=== PATIENT | male | born 1955 | race Caucasian/White ===

== ENCOUNTER 2017-11-28 10:51 | Inpatient (IN) ==
[2017-11-28] MEDS ORDERED: Ondansetron 4 MG/2 ML VIAL IVP ONE (11:29)
[2017-11-28] MEDS ORDERED: *HR* FentaNYL (PF) 100 MCG/2 ML VIAL IVP ONE ×2 (11:31→12:42)
[2017-11-28 11:48] LABS: Bilirubin,Urine Small (Negative); Blood,Urine Negative (Negative); Clarity,Urine Clear (Clear); Color,Urine Yellow (Yellow); Glucose,Urine (UA) Normal (Normal); Ketones,Urine 40 mg/dL (Negative); Leukocyte Esterase,Urine Negative (Negative); Nitrite,Urine Negative (Negative); Protein,Urine 30 mg/dL (Neg-Trace); Specific Gravity,Urine > 1.030 (1.010-1.025); Urobilinogen,Urine Normal (Normal)
[2017-11-28 11:49] LABS: Hematocrit 46.5 % (37.5-50.1); Hemoglobin 15.6 g/dL (12.9-16.9); Mean Corpuscular HGB Conc 33.5 g/dL (31.6-35.5); Mean Corpuscular Hemoglobin 31.7 pg (28.0-33.3); Mean Corpuscular Volume 94.5 fL (83.0-100.0); Mean Platelet Volume 9.2 fL (9.4-12.4); Platelet Count 318 K/mcL (140-400); Red Blood Count 4.92 M/mcL (4.19-5.50); Red Cell Distribution Width 12.9 % (11.5-14.5)
[2017-11-28 11:51] LABS: Bacteria,Urine None Seen per hpf (None-Few); Hyaline Casts,Urine None Seen per lpf (None-Few); Squamous Epithelial Cell,Urine Few per lpf (None-Few); WBC,Urine 0-3 per hpf (0-3)
--- NOTE | 2017-11-28 12:04 | Emergency Department Note ---
Disposition Clinical Impression: Alcohol use Pancreatitis Qualifiers: Chronicity: acute Pancreatitis type: alcohol induced Acute pancreatitis complication: no infection or necrosis Qualified Code(s): K85.20 - Alcohol induced acute pancreatitis without necrosis or infection Disposition: Admitted As Inpatient Condition: Fair Referrals: Nguyen Odom MD [Primary Care Provider] - Forms: ED Satisfaction Letter, Work/School Release General Adult HPI - General Chief complaint: ED Abdominal Pain Stated complaint: ABD Pain N/V Time Seen by Provider: 11/28/17 11:01 Source: patient Limitations: no limitations Nursing Notes Reviewed: Yes Vital Signs Reviewed: Yes - History of Present Illness HPI Narrative: Presents with abdominal pain which is central but does extend to the entire abdomen and sharp and severe without radiation and woke him from sleep at 2 or 3 :00 this morning and has been constant since that time. No history of abdominal surgeries that he has had diverticulitis in the past. He denies any diarrhea, blood in the urine or stool, testicular pain or penile discharge, dysuria or urinary frequency. He has not used any medication for the pain. Social history: Smoker, does not drink every day but can drink 6 or 8 beers at a time, no drug use Pain Scale: 10 - Related Data Home Medications Medication Instructions Recorded Confirmed Aspirin [Lo-Dose Aspirin EC] 81 mg PO DAILY 11/28/17 11/28/17 Atorvastatin [Lipitor] 40 mg PO HS 11/28/17 11/28/17 Gabapentin [Neurontin] 1,200 mg PO 0900,2100 11/28/17 11/28/17 Gabapentin [Neurontin] 600 mg PO 1200 11/28/17 11/28/17 Multivitamin [One Daily 1 tab PO DAILY 11/28/17 11/28/17 Multivitamin] Omeprazole [PriLOSEC] 20 mg PO DAILY 11/28/17 11/28/17 OxyCODONE/APAP 5/325 [Percocet 1 tab PO 5XD PRN 11/28/17 11/28/17 5/325 MG] Polyethylene Glycol 3350 [MiraLAX] 17 gm PO DAILY 11/28/17 11/28/17 Propranolol LA (24 HR) [Inderal LA] 60 mg PO DAILY 11/28/17 11/28/17 Tizanidine HCl [Zanaflex] 4 mg PO TID 11/28/17 11/28/17 Venlafaxine XR (24 HR) [Effexor XR] 37.5 mg PO Q48H 11/28/17 11/28/17 Allergies Allergy/AdvReac Type Severity Reaction Status Date / Time No Known Allergies Allergy Verified 11/28/17 13:39 Review of Systems: Constitutional: No fever Vision: No blurred vision ENT: No rhinorrhea Respiratory: No cough Allergic: No allergies : No blood in urine GI: No blood in stool Hematologic: No bruising Dermatologic: No skin rash Musculoskeletal: No pain in the extremities Neuro: No numbness of the extremities Past Medical History - Past Medical History Medical history: Reports: hyperlipidemia Psychiatric history: Reports: depression - Social History Smoking Status: Current every day smoker Smokeless Tobacco Status: No Alcohol use: Reports: occasionally Drug use: Reports: none Physical Exam CONSTITUTIONAL: Alert and oriented X3, well-nourished, well appearing, in no apparent distress HEAD: Normocephalic; atraumatic. EYES: PERRL, no scleral icterus. NOSE: The nose is normal in appearance without rhinorrhea RESP: Normal chest excursion with respiration; breath sounds clear and equal bilaterally; no wheezes, rhonchi, or rales CARD: Regular rhythm, without murmurs, rub or gallop ABD: Non-distended; normal appearance, moderate generalized pain but moderate to severe pain located in the central aspect of the abdomen, the entire abdomen is soft,without rigidity, rebound or guarding SKIN: Normal for age and race; warm and dry; no apparent lesions - General Limitations: no limitations General appearance: alert, in no apparent distress Course Vital Signs Temperature 97.4 F L 11/28/17 10:56 Pulse Rate 77 11/28/17 10:56 Respiratory Rate 16 11/28/17 10:56 Blood Pressure 152/97 11/28/17 10:56 O2 Sat by Pulse Oximetry 96 11/28/17 10:56 Temperature 98.4 F 11/28/17 11:47 Pulse Rate 73 11/28/17 12:36 Respiratory Rate 20 11/28/17 12:36 Blood Pressure 163/98 11/28/17 12:36 O2 Sat by Pulse Oximetry 96 11/28/17 12:36 Oxygen Delivery Oxygen Delivery Room Air Medical Decision Making - MDM Narrative Medical decision making narrative: I am concerned about this patient's pain and a CT scan is ordered. I did review the CBC result which does show some minimal leukocytosis with a white blood cell count of 14,000, the patient does have significant alcohol use of pancreatitis is another possibility. Patient did receive IV fluids, IV fentanyl and Zofran and will be watched closely here. 1204 I did review the patient's test results and the patient does have significantly elevated lipase and the patient does have a diagnosis of acute pancreatitis. I did review the EKG showing normal sinus rhythm with a rate of 71 without acute ischemic change. The patient will be admitted to the hospital. LFTs and bilirubin were all normal and does not evidence of acute cholecystitis on the CT scan and the likely etiology of the pancreatitis is alcohol however this can be further assessed and evaluated as an inpatient 1413 I did speak with the hospitalist to accept the patient for admission and we did review the patient's test results including labs and CT scan and past history and the patient is accepted for admission 1424 - Medical Records Medical records reviewed: Yes I reviewed the patient's medical records. - Lab Data Lab results reviewed: Yes I reviewed the patient's lab results. Result diagrams: 11/28/17 11:28 11/28/17 11:28 Lab Results 11/28/17 11/28/17 11/28/17 Range/Units 11:28 11:28 11:28 WBC 14.4 H (4.3-11.1) K/mcL RBC 4.92 (4.19-5.50) M/mcL Hgb 15.6 (12.9-16.9) g/dL Hct 46.5 (37.5-50.1) % MCV 94.5 (83.0-100.0) fL MCH 31.7 (28.0-33.3) pg MCHC 33.5 (31.6-35.5) g/dL RDW 12.9 (11.5-14.5) % Plt Count 318 (140-400) K/mcL MPV 9.2 L (9.4-12.4) fL Sodium 138 (136-145) mEq/L Potassium 4.3 (3.5-5.1) mEq/L Chloride 103 (98-107) mEq/L Carbon Dioxide 26 (23-29) mEq/L BUN 10 (8-23) mg/dL Creatinine 0.69 L (0.70-1.30) mg/dL Est GFR ( Amer) > 60 (> 60) Est GFR (Non-Af Amer) > 60 (> 60) BUN/Creatinine Ratio 14 (6-26) Glucose 139 H (70-105) mg/dL Calculated Osmolality 287 (280-300) Calcium 9.6 (8.6-10.3) mg/dL Total Bilirubin 0.7 (0.3-1.0) mg/dL Direct Bilirubin 0.2 (0.0-0.2) mg/dL Indirect Bilirubin 0.5 (0.0-1.2) mg/dL AST 25 (13-39) Units/L ALT 28 (7-52) Units/L Alkaline Phosphatase 98 (34-104) Units/L Serum Total Protein 7.6 (6.4-8.9) g/dL Albumin 4.6 (3.5-5.7) g/dL Globulin 3.0 (2.4-3.5) g/dL Albumin/Globulin Ratio 1.5 (1.1-2.2) Lipase > 1800 H (11-82) Units/L Urine Color Yellow (Yellow) Urine Clarity Clear (Clear) Urine pH 6.0 (5.0-8.0) pH Units Ur Specific [place] > 1.030 H (1.010-1.025) Urine Protein 30 H (Neg-Trace) mg/dL Urine Glucose (UA) Normal (Normal) mg/dL Urine Ketones 40 H (Negative) mg/dL Urine Blood Negative (Negative) Urine Nitrite Negative (Negative) Urine Bilirubin Small H (Negative) Urine Urobilinogen Normal (Normal) mg/dL Ur Leukocyte Esterase Negative (Negative) Urine Microscopic RBC 5-15 H (0-3) per hpf Urine Microscopic WBC 0-3 (0-3) per hpf Ur Squamous Epith Cells Few (None-Few) per lpf Urine Bacteria None Seen (None-Few) per hpf Hyaline Casts None Seen (None-Few) per lpf Ur Culture Indicated? NO (NO)
[2017-11-28] MEDS ORDERED: 0.9 % Sodium Chloride 1,000 ML IVC ONE (12:09)
[2017-11-28 12:26] LABS: Alanine Aminotransferase 28 Units/L (7-52); Albumin 4.6 g/dL (3.5-5.7); Albumin/Globulin Ratio 1.5 (1.1-2.2); Alkaline Phosphatase 98 Units/L (34-104); Aspartate Amino Transferase 25 Units/L (13-39); BUN/Creatinine Ratio 14 (6-26); Bilirubin,Direct 0.2 mg/dL (0.0-0.2); Bilirubin,Indirect 0.5 mg/dL (0.0-1.2); Bilirubin,Total 0.7 mg/dL (0.3-1.0); Blood Urea Nitrogen 10 mg/dL (8-23); Calcium 9.6 mg/dL (8.6-10.3); Carbon Dioxide 26 mEq/L (23-29); Chloride 103 mEq/L (98-107); Glucose 139 mg/dL (70-105); Lipase > 1800 Units/L (11-82); Osmolality,Calculated 287 (280-300); Potassium 4.3 mEq/L (3.5-5.1); Sodium 138 mEq/L (136-145); Total Protein 7.6 g/dL (6.4-8.9); eGFR For Non-African Americans > 60 (> 60)
[2017-11-28] MEDS ORDERED: *HR* LORazepam 2 MG/ML VIAL IVP ONE (14:48)
[2017-11-28] MEDS ORDERED: *HR* Promethazine 25 MG/ML VIAL IVP PRN (15:08)
[2017-11-28] MEDS ORDERED: Ondansetron 4 MG/2 ML VIAL IVP PRN (15:08)
[2017-11-28] MEDS ORDERED: Naloxone 0.4 MG/ML INJ IVP PRN (15:09)
[2017-11-28] MEDS ORDERED: Acetaminophen IV 1,000 MG/100 ML INFUS..BTL IVPB ONE (15:12)
[2017-11-28] MEDS ORDERED: Venlafaxine XR (24 HR) 37.5 MG CAP.ER.24H PO SCH (15:15)
[2017-11-28] MEDS ORDERED: 0.9 % Sodium Chloride 1,000 ML IVC SCH (15:15)
[2017-11-28] MEDS ORDERED: *HR* LORazepam 2 MG/ML VIAL IVP PRN (15:16)
--- NOTE | 2017-11-28 15:25 | Internal Med History&Physical ---
<Jose LuisAngel - Last Filed: 11/28/17 16:16> Date of Encounter: 11/28/17 Time of Encounter: 14:30 Internal Medicine - H&P: HPI Chief complaint: Abdominal pain Admitted From: Emergency Dept Plans for Post Hospital Care: Home History of present illness: Mr. Ware is a 62 year old male w/PMH of HLD, chronic back pain, chronic leg spasms, GERD, and depression presents from the ED w/CC of abdominal pain that began at 2 a.m. this morning and woke the pt. from sleep. Reports nausea and vomiting every hour with increased temperature, diaphoresis, and epigastric pain. Last meal was last night and consisted of broccoli/cheddar soup. Pt. reports drinking 8 beers last night as well. States he drinks 1-2 beers every other night usually. No alleviating factors. Describes the pain as sharp, epigastric pain that spans his abdomen. Denies previous occurrence or hx. Pt. denies recent illness, changes in vision, headache, unusual bleeding, chest pain , shortness of breath, diarrhea, constipation, cough, chest congestion, dizziness, lightheadedness, numbness, tingling, pre-syncope, or syncope. Past Med Surg Social Fam HX - Past Medical History Source: patient, old records reviewed, obtained from family Medical history: hyperlipidemia, other (Chronic back pain, chronic muscle spasms in bilateral LEs) Additional medical history: Gallstones, diverticulitis Psychiatric history: depression - Past Surgical History Additional surgical history: Brain biopsy - Social History Smoking Status: Current every day smoker Smokeless Tobacco Status: No Alcohol use: heavy, recent (8 beers last night) Drug use: none Current living situation: Home, With Family Activity Level: Independent ambulation Recent Out of Country Travel Within the Last 8 Weeks: No Exposure or Possible Exposure to Illness During Travel: No - Family History Father Race: Family Member Ethnicity: Non- Living Status: Age at : 49 Cause of : Cerebral hemorrhage Hx Family Cardiac Disorders: Yes (Hemorrhage) Mother Race: Family Member Ethnicity: Non- Living Status: Age at : 89 Cause of : Alzheimer's disease Hx Family Cardiac Disorders: Yes (CAD) Hx Family Neurologic Disorders: Yes (Alzheimer's disease) Brother Race: Family Member Ethnicity: Non- Living Status: Age at : 43 Cause of : Cancer Hx Family Cardiac Disorders: Yes (CAD) Hx Family Cancer: Yes (Prostate) Sister Race: Family Member Ethnicity: Non- Living Status: Still Living Hx Family Cardiac Disorders: Yes (CAD) Hx Family Cancer: Yes (Breast) Internal Medicine - H&P: Meds Aspirin [Lo-Dose Aspirin EC] 81 mg PO DAILY 11/28/17 [History] Atorvastatin [Lipitor] 40 mg PO HS 11/28/17 [History] Gabapentin [Neurontin] 1,200 mg PO 0900,2100 11/28/17 [History] Gabapentin [Neurontin] 600 mg PO 1200 11/28/17 [History] Multivitamin [One Daily Multivitamin] 1 tab PO DAILY 11/28/17 [History] Omeprazole [PriLOSEC] 20 mg PO DAILY 11/28/17 [History] OxyCODONE/APAP 5/325 [Percocet 5/325 MG] 1 tab PO 5XD PRN 11/28/17 [History] Polyethylene Glycol 3350 [MiraLAX] 17 gm PO DAILY 11/28/17 [History] Propranolol LA (24 HR) [Inderal LA] 60 mg PO DAILY 11/28/17 [History] Tizanidine HCl [Zanaflex] 4 mg PO TID 11/28/17 [History] Venlafaxine XR (24 HR) [Effexor XR] 37.5 mg PO Q48H 11/28/17 [History] 3 Allergy/AdvReac Type Severity Reaction Status Date / Time No Known Allergies Allergy Verified 11/28/17 13:39 All Systems PM: A 10-system review of systems was performed and is negative for pertinent findings except as documented above in the HPI. - Constitutional Constitutional: as per HPI, chills, excessive sweating, fever(s), no night sweats - EENT Eyes: no change in vision, no discharge, no pain, no photophobia Ears: no ear discharge, no ear pain, no tinnitus Nose, mouth and throat: no dysphagia, no nasal discharge, no neck pain, no sore throat - Breasts Breasts: as per HPI - Cardiovascular Cardiovascular ROS IM: no chest pain, no diaphoresis, no dyspnea, no lightheadedness, no palpitations, no syncope - Respiratory Respiratory: no cough, no dyspnea, no wheezing, no excessive phlegm production - Gastrointestinal Gastrointestinal: as per HPI, abdominal pain, heartburn, nausea, vomiting, no diarrhea, no hematemesis, no hematochezia, no melena - Genitourinary Genitourinary ROS male: as per HPI - Musculoskeletal Musculoskeletal ROS IM: as per HPI, back pain, muscle cramps (Bilateral LEs), no numbness, no tingling - Integumentary Integumentary IM: no rash, no unusual bruising - Neurological Neurological ROS: no confusion, no convulsions, no focal weakness, no numbness, no tingling, no tremor(s) - Psychiatric Psychiatric: as per HPI, depression - Endocrine Endocrine IM: as per HPI - Hematologic/Lymphatic Hematologic/Lymphatic: no easy bruising - Allergic/Immunologic Allergic/Immunologic: as per HPI - Constitutional Vitals: Temp Pulse Resp BP Pulse Ox 98.4 F 73 20 163/98 96 11/28/17 11:47 11/28/17 12:36 11/28/17 12:36 11/28/17 12:36 11/28/17 12:36 General appearance: Present: cooperative, A&O X 3, pleasant, severe distress ( Abdominal pain), answers questions appropriately Exam: Patient examined at bedside in the ED with chief complaint of severe abdominal pain that patient rated as 9/10. Patient also reports nausea and vomiting. Denies unusual bleeding or blood in stool. Patient also reports drinking 8 beers last night but denies heavy alcohol use. Patient denies any other complaints at this time. at bedside during exam. Plan of care discussed with and patient regarding acute pancreatitis, nothing by mouth status except for ice chips and medications, and aggressive IV fluids with and patient expressing understanding and agreement with POC. VS: 98.4F temp, HR 73, RR 20, BP 163/98, SPO2 96% on RA. - Head Head exam: Present: atraumatic, normocephalic - Eye Eye exam: Present: PERRL, conjuntiva pink, sclera anicteric Pupils: Present: PERRL - ENT ENT exam: Present: normal exam - Neck Neck exam general surgery: Present: normal inspection - Respiratory Respiratory exam: Present: CTAB. Absent: accessory muscle use, rales, rhonchi, wheezes - Cardiovascular Cardiovascular exam: Present: RRR, +S1, +S2. Absent: diastolic murmur, gallop, rubs, systolic murmur - GI/Abdominal GI/Abdominal exam: Present: guarding, normal bowel sounds, soft, tenderness, no peritoneal signs. Absent: distended - Rectal Rectal exam: Present: deferred - Additional comments: exam deferred. - Extremities Exam Extremities exam: Present: warm, radial pulses palpable and symmetrical. Absent : calf tenderness, cyanotic, pedal edema - Back Exam Back exam: Present: normal inspection - Neurological Exam Neurological exam: Present: alert, CN II-XII intact, oriented X3, no focal deficits. Absent: pronater drift, facial droop, speech deficit - Psychiatric Psychiatric exam: Present: anxious - Skin Skin exam: Present: dry, intact Internal Med - H&P Results - Labs CBC & Chem 7: 11/28/17 11:28 11/28/17 11:28 Labs: Short CBC 11/28/17 Range/Units 11:28 WBC 14.4 H (4.3-11.1) K/mcL Hgb 15.6 (12.9-16.9) g/dL Hct 46.5 (37.5-50.1) % Plt Count 318 (140-400) K/mcL BMP 11/28/17 11:28 Sodium 138 Potassium 4.3 Chloride 103 Carbon Dioxide 26 BUN 10 Creatinine 0.69 L Glucose 139 H Calcium 9.6 Liver Function 11/28/17 Range/Units 11:28 Total Bilirubin 0.7 (0.3-1.0) mg/dL Direct Bilirubin 0.2 (0.0-0.2) mg/dL AST 25 (13-39) Units/L ALT 28 (7-52) Units/L Alkaline Phosphatase 98 (34-104) Units/L Albumin 4.6 (3.5-5.7) g/dL Urine 11/28/17 Range/Units 11:28 Urine Color Yellow (Yellow) Urine Clarity Clear (Clear) Urine pH 6.0 (5.0-8.0) pH Units Ur Specific Garibaldi > 1.030 H (1.010-1.025) Urine Protein 30 H (Neg-Trace) mg/dL Urine Glucose (UA) Normal (Normal) mg/dL - EKG Data EKG shows normal: sinus rhythm - EKG Data Prior EKG available for review: yes EKG comments: 11/28/17 15:35 EKG dated 02/07/15 shows normal sinus rhythm. EKG dated 11/28/17 shows sinus rhythm. - Impressions ITS Impressions Abdomen/Pelvis CT 11/28/17 11:30 IMPRESSION: 1. Acute pancreatitis suboptimally evaluated without IV contrast. IV contrast enhanced CT is important to evaluate for areas of necrosis and pancreatitis. 2. Peripancreatic fluid is presumably reactive. 3. Cholelithiasis. 4. Calcific atherosclerotic disease aorta. D/ / Dusty Arnett / [employer] Interpreting Provider: Dusty ToughSurgeryanita - Diagnostic Studies CT scan - abdomen Additional comments: Impressions Abdomen/Pelvis CT 11/28/17 11:30 IMPRESSION: 1. Acute pancreatitis suboptimally evaluated without IV contrast. IV contrast enhanced CT is important to evaluate for areas of necrosis and pancreatitis. 2. Peripancreatic fluid is presumably reactive. 3. Cholelithiasis. 4. Calcific atherosclerotic disease aorta. D/ / Dusty Melquiades / [employer] Interpreting Provider: Dusty ToughSurgeryanita Other Images Additional comments: Impressions EXAMINATION: TWO XRAY VIEWS OF THE ABDOMEN AND SINGLE XRAY VIEW OF THE CHEST 11/28/2017 10:13 am COMPARISON: None. HISTORY: ORDERING SYSTEM PROVIDED HISTORY: Severe abd LLQ painRM 2. FINDINGS: No lines or tubes. Normal cardiomediastinal silhouette. The lungs are clear without focal consolidation or pleural effusion. No suspicious pulmonary nodules. No pulmonary edema. No pneumothorax. No gaseous distended loops of small bowel or air-fluid levels. No free air or pneumatosis. Normal gas and stool burden is seen throughout the colon and rectum. No acute osseous abnormality. XR/XR acute abdominal series IMPRESSION: 1. No acute cardiopulmonary disease. 2. Unremarkable bowel gas pattern. D/ / 11/28/2017 10:28:25 Jenny Etienne MD / sandro Interpreting Provider: Jenny Etienne MD - Assessment and plan (1) Pancreatitis Current Visit: Yes Status: Acute Assessment and plan: Acute pancreatitis. Abdominal pain began this morning at 2 a.m. and woke the pt. from sleep. Reports nausea and vomiting every hour with increased temperature, diaphoresis, and epigastric pain. Last meal was last night and consisted of broccoli/cheddar soup. Pt. reports drinking 8 beers last night as well. States he drinks 1-2 beers every other night usually. No alleviating factors. Describes the pain as sharp, epigastric pain that spans his abdomen. Denies previous occurrence or hx. CT of the abdomen/pelvis today shows acute pancreatitis suboptimally evaluated without IV contrast. IV contrast-enhanced CT is important to evaluate for areas of necrosis and pancreatitis. Peripancreatic fluid is presumably reactive. Cholelithiasis. Calcific atherosclerotic disease aorta. Stair-step pain medications for pain mgmt. NPO except ice chips and medications. 0.9 NS IV fluids @ 125 mLs/HR. Pt. discussed w /Dr. Melo who agrees w/plan of care. Pt. is high risk for further morbidity and complications d/t current acute pancreatitis and severe abdominal pain, recent heavy alcohol use, current tobacco use, hx, and risk factors. Observation. Qualifiers: Chronicity: acute Pancreatitis type: alcohol induced Acute pancreatitis complication: unspecified Qualified Code(s): K85.20 - Alcohol induced acute pancreatitis without necrosis or infection (2) Abdominal pain Current Visit: Yes Status: Acute Assessment and plan: Acute abdominal pain that began this morning at 2 a.m. and woke the pt. from sleep. Reports nausea and vomiting every hour with increased temperature, diaphoresis, and epigastric pain. Last meal was last night and consisted of broccoli/cheddar soup. Pt. reports drinking 8 beers last night as well. States he drinks 1-2 beers every other night usually. No alleviating factors. Describes the pain as sharp, epigastric pain that spans his abdomen. Denies previous occurrence or hx. Stair-step pain medications for pain mgmt. NPO except ice chips and medications. Qualifiers: Abdominal location: epigastric Qualified Code(s): R10.13 - Epigastric pain (3) Alcohol use Current Visit: Yes Status: Acute Assessment and plan: Acute on chronic alcohol use. Pt. reports drinking 1-2 beers every other night but states that he drank 8 beers last night. Relates use to family stress. CIWA scale. Blood alcohol ordered. IVP 1 mg Ativan Q6HR PRN. Falls/safety precautions and up with assist only. (4) Nausea & vomiting Current Visit: Yes Status: Acute Assessment and plan: Acute nausea and vomiting r/t current acute pancreatitis. IVP Zofran 4 mg Q6HR and IVP 12.5 mg Phenergan Q4HR PRN for N/V. Continue pts. PO Prilosec. Qualifiers: Vomiting type: cyclical vomiting Vomiting Intractability: intractable Qualified Code(s): G43.A1 - Cyclical vomiting, intractable (5) Cholelithiasis Current Visit: Yes Status: Acute Assessment and plan: Acute cholelithiasis according to CT today which shows liver attenuation and texture appears unremarkable. No discrete hepatic lesion or intra-hepatic bile duct dilatation seen. Gallbladder has calcifications reflecting cholelithiasis without pericholecystic fluid or inflammatory change evident. Qualifiers: Cholelithiasis location: gallbladder Cholecystitis presence: without cholecystitis Biliary obstruction: without biliary obstruction Qualified Code(s): K80.20 - Calculus of gallbladder without cholecystitis without obstruction (6) HLD (hyperlipidemia) Current Visit: Yes Status: Chronic Assessment and plan: Hx of chronic HLD. Lipid panel in a.m. labs. Continue pts. Lipitor. Qualifiers: Hyperlipidemia type: pure hypercholesterolemia Qualified Code(s): E78.00 - Pure hypercholesterolemia, unspecified; E78.0 - Pure hypercholesterolemia (7) Muscle spasm of both lower legs Current Visit: Yes Status: Chronic Assessment and plan: Hx of chronic muscle spasms of bilateral LEs. Continue pts. Zanaflex. Falls/ safety precautions and up with assist only. (8) Chronic back pain Current Visit: Yes Status: Chronic Assessment and plan: Hx of chronic back pain d/t previous injury. Verified Neurontin via OARRS @ 1200 mg TID. Stair-step pain medications ordered for current adominal pain r/t pancreatitis. Qualifiers: Back pain location: low back pain Back pain laterality: midline Sciatica presence: unspecified whether sciatica present Qualified Code(s): M54.5 - Low back pain; G89.29 - Other chronic pain (9) GERD (gastroesophageal reflux disease) Current Visit: Yes Status: Chronic Assessment and plan: Hx of chronic GERD. Continue pts. PO Prilosec. Qualifiers: Esophagitis presence: esophagitis presence not specified Qualified Code(s) : K21.9 - Gastro-esophageal reflux disease without esophagitis (10) DVT prophylaxis Current Visit: Yes Status: Acute Assessment and plan: Heparin 5,000 units SQ Q8HR for DVT prophylaxis. Monitor pt. for signs of bleeding. (11) Anxiety and depression Current Visit: Yes Status: Chronic Assessment and plan: Hx of chronic depression. Continue pts. Effexor and Inderal. - Time Spent With Patient Total time spent is greater than 50% in coordination of care (as documented) at patient's floor/unit and/or counseling patient: Greater than 35 minutes <Shoaib Melo - Last Filed: 11/28/17 17:27> Date of Encounter: 11/28/17 Internal Medicine - H&P: HPI History of present illness: Mr. Ware is a 62 year old male All Systems PM: A 10-system review of systems was performed and is negative for pertinent findings except as documented above in the HPI. - Constitutional Vitals: Temp Pulse Resp BP Pulse Ox 98.3 F 73 20 181/95 96 11/28/17 15:40 11/28/17 12:36 11/28/17 15:40 11/28/17 15:40 11/28/17 12:36 Internal Med - H&P Results - Labs CBC & Chem 7: 11/28/17 11:28 11/28/17 11:28 - Assessment and plan (1) Abdominal pain Current Visit: Yes Status: Acute Qualifiers: Abdominal location: epigastric Qualified Code(s): R10.13 - Epigastric pain (2) Pancreatitis Current Visit: Yes Status: Acute Qualifiers: Chronicity: acute Pancreatitis type: alcohol induced Acute pancreatitis complication: unspecified Qualified Code(s): K85.20 - Alcohol induced acute pancreatitis without necrosis or infection (3) Alcohol use Current Visit: Yes Status: Acute (4) Nausea & vomiting Current Visit: Yes Status: Acute Qualifiers: Vomiting type: cyclical vomiting Vomiting Intractability: intractable Qualified Code(s): G43.A1 - Cyclical vomiting, intractable (5) HLD (hyperlipidemia) Current Visit: Yes Status: Chronic Qualifiers: Hyperlipidemia type: pure hypercholesterolemia Qualified Code(s): E78.00 - Pure hypercholesterolemia, unspecified; E78.0 - Pure hypercholesterolemia (6) Muscle spasm of both lower legs Current Visit: Yes Status: Chronic (7) Chronic back pain Current Visit: Yes Status: Chronic Qualifiers: Back pain location: low back pain Back pain laterality: midline Sciatica presence: unspecified whether sciatica present Qualified Code(s): M54.5 - Low back pain; G89.29 - Other chronic pain (8) GERD (gastroesophageal reflux disease) Current Visit: Yes Status: Chronic Qualifiers: Esophagitis presence: esophagitis presence not specified Qualified Code(s) : K21.9 - Gastro-esophageal reflux disease without esophagitis (9) DVT prophylaxis Current Visit: Yes Status: Acute (10) Cholelithiasis Current Visit: Yes Status: Acute Qualifiers: Cholelithiasis location: gallbladder Cholecystitis presence: without cholecystitis Biliary obstruction: without biliary obstruction Qualified Code(s): K80.20 - Calculus of gallbladder without cholecystitis without obstruction (11) Anxiety and depression Current Visit: Yes Status: Chronic - Time Spent With Patient Total time spent is greater than 50% in coordination of care (as documented) at patient's floor/unit and/or counseling patient: - Attending Attestation I have seen and examined the patient with HUMANITIES INSTRUCTOR Angel Amaya and agree with his/her assessment and plan. 62-year-old male with history of binge drinking presented to the ED with epigastric pain and elevated lipase. No evidence of end organ dysfunction. Afebrile, hemodynamically stable, mild epigastric tenderness without rebound or guarding. Labwork and radiological studies reviewed, leukocytosis likely reactive. Supportive measures with IV fluids and analgesics. CIWA protocol for possible withdrawal. Consider repeat imaging to look for necrosis if he clinically deteriorates Shoaib Melo MD
[2017-11-28 16:18] LABS: Ethanol < 10 mg/dL (Less than 10)
[2017-11-28] MEDS: OXYCODONE Oral CONC 10 MG/0.5 ML ORAL.SYG SL PRN (19:05)
[2017-11-28] MEDS: tiZANidine 4 MG TABLET PO SCH (20:45)
[2017-11-28] MEDS: Gabapentin 400 MG CAPSULE PO SCH (20:49)
[2017-11-28] MEDS: *HR* Heparin 5,000 UNIT/ML VIAL SQ SCH (21:03)
[2017-11-28] MEDS: Nicotine 21 MG PATCH.TD24 TD SCH (22:45)
[2017-11-28] MEDS: *HR* OxyCODONE/APAP 5/325 TABLET PO PRN (22:45)
[2017-11-28] MEDS: 0.9 % Sodium Chloride 1,000 ML IVC SCH (23:43)
[2017-11-29 02:01] LABS: Basophils % 0.1 %; Immature Granulocytes % 0.5 % (0-4); Lymphocytes # 1.9 K/mcL (0.6-4.6); Lymphocytes % 17.3 %; Mean Corpuscular HGB Conc 33.8 g/dL (31.6-35.5); Mean Corpuscular Hemoglobin 31.8 pg (28.0-33.3); Mean Corpuscular Volume 94.1 fL (83.0-100.0); Mean Platelet Volume 9.5 fL (9.4-12.4); Monocytes # 0.7 K/mcL (0.0-1.3); Monocytes % 6.7 %; Neutrophils # 8.1 K/mcL (1.6-8.9); Platelet Count 269 K/mcL (140-400); Red Blood Count 4.25 M/mcL (4.19-5.50); Red Cell Distribution Width 13.4 % (11.5-14.5); Segmented Neutrophils % 75.4 %
[2017-11-29 02:07] LABS: Hemoglobin 13.5 g/dL (12.9-16.9)
[2017-11-29 02:11] LABS: Alanine Aminotransferase 20 Units/L (7-52); Albumin 3.9 g/dL (3.5-5.7); Albumin/Globulin Ratio 1.6 (1.1-2.2); Alkaline Phosphatase 84 Units/L (34-104); Aspartate Amino Transferase 20 Units/L (13-39); BUN/Creatinine Ratio 14 (6-26); Bilirubin,Total 0.7 mg/dL (0.3-1.0); Blood Urea Nitrogen 9 mg/dL (8-23); Calcium 8.5 mg/dL (8.6-10.3); Carbon Dioxide 24 mEq/L (23-29); Chloride 106 mEq/L (98-107); Chol/HDL Ratio 3.9 (0-4.9); Cholesterol 162 mg/dL (< 200); Globulin 2.5 g/dL (2.4-3.5); Glucose 108 mg/dL (70-105); HDL Cholesterol 42 mg/dL (40-59); LDL Cholesterol,Calculated 95 mg/dL (0-99); Magnesium 2.1 mg/dL (1.6-2.6); Osmolality,Calculated 285 (280-300); Potassium 3.7 mEq/L (3.5-5.1); Sodium 138 mEq/L (136-145); Total Protein 6.4 g/dL (6.4-8.9); Triglycerides 126 mg/dL (< 150); eGFR For Non-African Americans > 60 (> 60)
[2017-11-29] MEDS: *HR* OxyCODONE/APAP 5/325 TABLET PO PRN (06:05)
[2017-11-29] MEDS: 0.9 % Sodium Chloride 1,000 ML IVC SCH ×4 (06:06→22:14)
[2017-11-29] MEDS: *HR* Heparin 5,000 UNIT/ML VIAL SQ SCH ×3 (06:07→20:59)
[2017-11-29 09:04] LABS: Estimated Average Glucose 126 mg/dl
--- NOTE | 2017-11-29 09:07 | Internal Med Progress Note ---
<Charles Bullard - Last Filed: 11/29/17 16:33> Hospitalist Progress Note - Encounter Date of Encounter: 11/29/17 Time of Encounter: 09:30 - Subjective Interval History: PMHx of HLD, chronic back pain, GERD, depression presented with complaints of abdominal pain x1 day. CT abdomen found him to have acute pancreatitis. Today, patient's abdominal pain has improved significantly. He has been able to tolerate clear liquids. Denies fever, chills, nausea, vomiting. +flatus. Voiding without difficulty. Denies headaches, confusion, CP, SOB. Had one episode of tachycardia that has self-resolved. No further acute complaints. - Exam Vitals: Temp Pulse Resp BP Pulse Ox 98.4 F 93 16 142/82 92 11/29/17 06:42 11/29/17 06:42 11/29/17 06:42 11/29/17 06:42 11/29/17 06:42 Exam: - Head Head exam: Present: atraumatic, normocephalic - Eye Eye exam: Presentconjuntiva pink, sclera anicteric - ENT ENT exam: Present: normal exam - Neck Neck exam general surgery: Present: normal inspection - Respiratory Respiratory exam: Present: CTAB. Absent: accessory muscle use, rales, rhonchi, wheezes - Cardiovascular Cardiovascular exam: Present: RRR, +S1, +S2. Absent: diastolic murmur, gallop, rubs, systolic murmur - GI/Abdominal GI/Abdominal exam: Present: normal bowel sounds, soft, tenderness, no peritoneal signs. Absent: distended, guarding - Extremities Exam Extremities exam: Present: warm, radial pulses palpable and symmetrical. Absent : calf tenderness, cyanotic, pedal edema - Back Exam Back exam: Present: normal inspection - Neurological Exam Neurological exam: Present: alert, CN II-XII intact, oriented X3, no focal deficits. Absent: pronater drift, facial droop, speech deficit - Psychiatric Psychiatric exam: Present: anxious - Skin Skin exam: Present: dry, intact - Assessment and Plan (1) Acute pancreatitis Current Visit: Yes Status: Acute Assessment and Plan: Patient presented with severe abdominal pain x [address] abd/pelvis = acute pancreatitis. Cholelithiasis. Calcific atherosclerotic disease of aorta. Lipase > 67092, UA with protein and ketones. Glucose levels normal with A1c = 6. His symptoms of abdominal pain, nausea, and vomiting improved with 1L bolus and maintanance IVF. He is tolerating clear diet right now. Will continue to encourage PO intake as tolerated. Continue pain management. Strict I/Os. Will recheck AM labs. If stable, likely discharge tomorrow. (2) Abdominal pain Current Visit: Yes Status: Acute Assessment and plan: secondary to acute pancreatitis. See above Qualifiers: Abdominal location: epigastric Qualified Code(s): R10.13 - Epigastric pain (3) Alcohol use Current Visit: Yes Status: Acute Assessment and plan: Acute on chronic alcohol use. Pt. reports drinking 1-2 beers every other night but states that he drank 8 beers last night. Relates use to family stress. Alcohol levels normal. will continue with IVP 1 mg Ativan Q6HR PRN. Falls/ safety precautions and up with assist. d/c CIWA has patient's blood level is normal and no signs of withdrawal. (4) Nausea & vomiting Current Visit: Yes Status: Acute Assessment and plan: Acute nausea and vomiting r/t current acute pancreatitis. IVP Zofran 4 mg Q6HR and IVP 12.5 mg Phenergan Q4HR PRN for N/V. Continue pts. PO Prilosec. Qualifiers: Vomiting type: cyclical vomiting Vomiting Intractability: intractable Qualified Code(s): G43.A1 - Cyclical vomiting, intractable (5) Cholelithiasis Current Visit: Yes Status: Acute Assessment and plan: Acute cholelithiasis according to CT today which shows liver attenuation and texture appears unremarkable. No discrete hepatic lesion or intra-hepatic bile duct dilatation seen. Gallbladder has calcifications reflecting cholelithiasis without pericholecystic fluid or inflammatory change evident. No acute intervention required at this time. Qualifiers: Cholelithiasis location: gallbladder Cholecystitis presence: without cholecystitis Biliary obstruction: without biliary obstruction Qualified Code(s): K80.20 - Calculus of gallbladder without cholecystitis without obstruction (6) HLD (hyperlipidemia) Current Visit: Yes Status: Chronic Assessment and plan: Hx of chronic HLD. Lipid panel in a.m. labs. Continue pts. Lipitor. Qualifiers: Hyperlipidemia type: pure hypercholesterolemia Qualified Code(s): E78.00 - Pure hypercholesterolemia, unspecified; E78.0 - Pure hypercholesterolemia (7) Muscle spasm of both lower legs Current Visit: Yes Status: Chronic Assessment and plan: Hx of chronic muscle spasms of bilateral LEs. Continue pts. Zanaflex. Falls/ safety precautions and up with assist only. (8) Chronic back pain Current Visit: Yes Status: Chronic Assessment and plan: Hx of chronic back pain d/t previous injury. Verified Neurontin via OARRS @ 1200 mg TID. Stair-step pain medications ordered for current adominal pain r/t pancreatitis. Qualifiers: Back pain location: low back pain Back pain laterality: midline Sciatica presence: unspecified whether sciatica present Qualified Code(s): M54.5 - Low back pain; G89.29 - Other chronic pain (9) GERD (gastroesophageal reflux disease) Current Visit: Yes Status: Chronic Assessment and plan: Hx of chronic GERD. Continue pts. PO Prilosec. Qualifiers: Esophagitis presence: esophagitis presence not specified Qualified Code(s) : K21.9 - Gastro-esophageal reflux disease without esophagitis (10) Anxiety and depression Current Visit: Yes Status: Chronic Assessment and plan: Hx of chronic depression. Continue pts. Effexor and Inderal. DVT Prophylaxis: Heparin SQ - Time Spent with Patient Total time spent is greater than 50% in coordination of care (as documented) at patient's floor/unit and/or counseling patient: Greater than 35 minutes Plan of Care Discussed with: family Internal Medicine: Result - Labs CBC & Chem 7: 11/29/17 00:58 11/29/17 00:58 Labs: Short CBC 11/29/17 Range/Units 00:58 WBC 10.7 (4.3-11.1) K/mcL Hgb 13.5 D (12.9-16.9) g/dL Hct 40.0 (37.5-50.1) % Plt Count 269 (140-400) K/mcL Neutrophils # 8.1 (1.6-8.9) K/mcL BMP 11/29/17 00:58 Sodium 138 Potassium 3.7 Chloride 106 Carbon Dioxide 24 BUN 9 Creatinine 0.63 L Glucose 108 H Calcium 8.5 L Liver Function 11/29/17 Range/Units 00:58 Total Bilirubin 0.7 (0.3-1.0) mg/dL AST 20 (13-39) Units/L ALT 20 (7-52) Units/L Alkaline Phosphatase 84 (34-104) Units/L Albumin 3.9 (3.5-5.7) g/dL Consult Discharge Plan - Plan Referrals: Nguyen Odom MD [Primary Care Provider] - <DylonJordan eason Carol - Last Filed: 11/29/17 17:44> Hospitalist Progress Note - Encounter Date of Encounter: 11/29/17 - Exam Vitals: Temp Pulse Resp BP Pulse Ox 99.2 F 83 16 134/80 91 11/29/17 15:07 11/29/17 15:07 11/29/17 15:07 11/29/17 15:07 11/29/17 15:07 - Assessment and Plan (1) Abdominal pain Current Visit: Yes Status: Inactive (2) Pancreatitis Current Visit: Yes Status: Acute (3) Alcohol use Current Visit: Yes Status: Acute (4) Nausea & vomiting Current Visit: Yes Status: Acute (5) HLD (hyperlipidemia) Current Visit: Yes Status: Chronic (6) Muscle spasm of both lower legs Current Visit: Yes Status: Chronic (7) Chronic back pain Current Visit: Yes Status: Chronic (8) GERD (gastroesophageal reflux disease) Current Visit: Yes Status: Chronic (9) DVT prophylaxis Current Visit: Yes Status: Acute (10) Cholelithiasis Current Visit: Yes Status: Acute (11) Anxiety and depression Current Visit: Yes Status: Chronic - Time Spent with Patient Total time spent is greater than 50% in coordination of care (as documented) at patient's floor/unit and/or counseling patient: Internal Medicine: Result - Labs CBC & Chem 7: 11/29/17 00:58 11/29/17 00:58 Labs: Short CBC 11/29/17 Range/Units 00:58 WBC 10.7 (4.3-11.1) K/mcL Hgb 13.5 D (12.9-16.9) g/dL Hct 40.0 (37.5-50.1) % Plt Count 269 (140-400) K/mcL Neutrophils # 8.1 (1.6-8.9) K/mcL BMP 11/29/17 00:58 Sodium 138 Potassium 3.7 Chloride 106 Carbon Dioxide 24 BUN 9 Creatinine 0.63 L Glucose 108 H Calcium 8.5 L Liver Function 11/29/17 Range/Units 00:58 Total Bilirubin 0.7 (0.3-1.0) mg/dL AST 20 (13-39) Units/L ALT 20 (7-52) Units/L Alkaline Phosphatase 84 (34-104) Units/L Albumin 3.9 (3.5-5.7) g/dL - Attending Attestation 62 year old male with abdominal pain of 1 day duration Gen - Awake, alert, oriented x 3, no acute distress HEENT - NCAT, PERRLA, EOMI, hearing grossly intact, oropharynx benign CV - RRR, normal S1 and S2, no M/R/G, no BLE edema Resp - Normal WOB, CTAB, no W/R/R GI - Soft, NT/ND, no masses, normal bowel sounds, Skin - Warm, dry, no rashes/lesions/ulcers Psych - Normal mood and affect, no depression or anxiety Plan Acute pancreatitis. Advanced diet today. Plan for discharge in am if stable <Jordan Carrero - Last Filed: 11/29/17 17:44> (1) Abdominal pain Qualifiers: Abdominal location: epigastric Qualified Code(s): R10.13 - Epigastric pain (2) Pancreatitis Qualifiers: Chronicity: acute Pancreatitis type: alcohol induced Acute pancreatitis complication: unspecified Qualified Code(s): K85.20 - Alcohol induced acute pancreatitis without necrosis or infection (4) Nausea & vomiting Qualifiers: Vomiting type: cyclical vomiting Vomiting Intractability: intractable Qualified Code(s): G43.A1 - Cyclical vomiting, intractable (5) HLD (hyperlipidemia) Qualifiers: Hyperlipidemia type: pure hypercholesterolemia Qualified Code(s): E78.00 - Pure hypercholesterolemia, unspecified; E78.0 - Pure hypercholesterolemia (7) Chronic back pain Qualifiers: Back pain location: low back pain Back pain laterality: midline Sciatica presence: unspecified whether sciatica present Qualified Code(s): M54.5 - Low back pain; G89.29 - Other chronic pain (8) GERD (gastroesophageal reflux disease) Qualifiers: Esophagitis presence: esophagitis presence not specified Qualified Code(s): K21.9 - Gastro-esophageal reflux disease without esophagitis (10) Cholelithiasis Qualifiers: Cholelithiasis location: gallbladder Cholecystitis presence: without cholecystitis Biliary obstruction: without biliary obstruction Qualified Code( s): K80.20 - Calculus of gallbladder without cholecystitis without obstruction
[2017-11-29] MEDS: Nicotine 21 MG PATCH.TD24 TD SCH (09:10)
[2017-11-29] MEDS: Propranolol LA (24 HR) 60 MG CAP.SA.24H PO SCH (09:10)
[2017-11-29] MEDS: tiZANidine 4 MG TABLET PO SCH ×3 (09:11→20:59)
[2017-11-29] MEDS: Gabapentin 400 MG CAPSULE PO SCH ×2 (09:11→21:07)
[2017-11-29] MEDS: OXYCODONE Oral CONC 10 MG/0.5 ML ORAL.SYG SL PRN (10:41)
[2017-11-29] MEDS ORDERED: Gabapentin 400 MG CAPSULE PO SCH (12:00)
[2017-11-29] MEDS ORDERED: OXYCODONE Oral CONC 10 MG/0.5 ML ORAL.SYG SL PRN (15:48)
[2017-11-30] MEDS: 0.9 % Sodium Chloride 1,000 ML IVC SCH (04:12)
[2017-11-30] MEDS: *HR* Heparin 5,000 UNIT/ML VIAL SQ SCH (05:43)
[2017-11-30 06:48] LABS: Basophils % 0.3 %; Eosinophils # 0.1 K/mcL (0.0-0.6); Eosinophils % 0.8 %; Hematocrit 36.7 % (37.5-50.1); Hemoglobin 12.5 g/dL (12.9-16.9); Immature Granulocytes % 0.5 % (0-4); Lymphocytes # 2.1 K/mcL (0.6-4.6); Lymphocytes % 18.1 %; Mean Corpuscular HGB Conc 34.1 g/dL (31.6-35.5); Mean Corpuscular Hemoglobin 32.4 pg (28.0-33.3); Mean Corpuscular Volume 95.1 fL (83.0-100.0); Mean Platelet Volume 9.6 fL (9.4-12.4); Monocytes % 8.3 %; Neutrophils # 8.3 K/mcL (1.6-8.9); Platelet Count 227 K/mcL (140-400); Red Blood Count 3.86 M/mcL (4.19-5.50); Red Cell Distribution Width 13.3 % (11.5-14.5)
[2017-11-30 07:04] LABS: Alanine Aminotransferase 13 Units/L (7-52); Albumin 3.5 g/dL (3.5-5.7); Albumin/Globulin Ratio 1.4 (1.1-2.2); Alkaline Phosphatase 68 Units/L (34-104); Aspartate Amino Transferase 16 Units/L (13-39); BUN/Creatinine Ratio 7 (6-26); Blood Urea Nitrogen 5 mg/dL (8-23); Calcium 8.3 mg/dL (8.6-10.3); Carbon Dioxide 25 mEq/L (23-29); Chloride 106 mEq/L (98-107); Globulin 2.5 g/dL (2.4-3.5); Glucose 92 mg/dL (70-105); Osmolality,Calculated 281 (280-300); Potassium 3.6 mEq/L (3.5-5.1); Sodium 137 mEq/L (136-145); eGFR For Non-African Americans > 60 (> 60)
[2017-11-30 07:34] VITALS: BP 139/86
[2017-11-30] MEDS ORDERED: Aspirin 81 MG TAB.CHEW PO SCH (09:00)
[2017-11-30] MEDS: Propranolol LA (24 HR) 60 MG CAP.SA.24H PO SCH (09:19)
[2017-11-30] MEDS: tiZANidine 4 MG TABLET PO SCH (09:19)
[2017-11-30] MEDS: Gabapentin 400 MG CAPSULE PO SCH (09:20)
[2017-11-30] MEDS: Nicotine 21 MG PATCH.TD24 TD SCH (09:21)
[2017-11-30] MEDS ORDERED: *HR* OxyCODONE/APAP 5/325 TABLET PO SCH (09:31)
--- NOTE | 2017-11-30 10:08 | Discharge Summary ---
<AleahCharles - Last Filed: 11/30/17 14:31> Date of Encounter: 11/30/17 Time of Encounter: 10:35 - Discharge Diagnosis (1) Acute pancreatitis Priority: Primary Status: Acute Qualifiers: Qualified Code(s): K85.90 - Acute pancreatitis without necrosis or infection , unspecified (2) Nausea & vomiting Priority: Secondary Status: Acute Qualifiers: Vomiting type: cyclical vomiting Vomiting Intractability: intractable Qualified Code(s): G43.A1 - Cyclical vomiting, intractable Hospital course: MR. Ware is a 62 year old PHx of HLD, chronic back pain, GERD, depression with abdominal pain x1 night that woke him from sleep. +n/v with fever/ diaphoresis, epigastric pain. +8 beers night before. 1-2 beers every other night. No previous history. EKG = NSR. CT abd/pelvis demonstrated acute pancreatitis, cholelithiasis, calcific atherosclerotic disease of aorta. Patient was put on NPO and improved with IVF. He was started on clear diet yesterday and has tolerated PO intake well. He continues to improve and is back to baseline today. He is advised to avoid alcohol and fatty food. Come back to emergency room if symptoms reoccur with fever, chills, nausea, vomiting, severe abdominal pain. Follow up with PCP. Discharge discussed with: patient, family Time spent discussing smoking cessation with patient: 3 to 10 minutes - Time Spent with Patient Total time spent providing and/or coordinating discharge services: Greater than 30 minutes - Discharge Medications Home Medications: Aspirin [Lo-Dose Aspirin EC] 81 mg PO DAILY 11/28/17 [History] Atorvastatin [Lipitor] 40 mg PO HS 11/28/17 [History] Gabapentin [Neurontin] 1,200 mg PO 0900,2100 11/28/17 [History] Gabapentin [Neurontin] 600 mg PO 1200 11/28/17 [History] Multivitamin [One Daily Multivitamin] 1 tab PO DAILY 11/28/17 [History] Omeprazole [PriLOSEC] 20 mg PO DAILY 11/28/17 [History] OxyCODONE/APAP 5/325 [Percocet 5/325 MG] 1 tab PO 5XD PRN 11/28/17 [History] Polyethylene Glycol 3350 [MiraLAX] 17 gm PO DAILY 11/28/17 [History] Propranolol LA (24 HR) [Inderal LA] 60 mg PO DAILY 11/28/17 [History] Tizanidine HCl [Zanaflex] 4 mg PO TID 11/28/17 [History] Venlafaxine XR (24 HR) [Effexor Xr] 37.5 mg PO Q48H 11/28/17 [History] Allergies/Adverse Reactions: 3 Allergy/AdvReac Type Severity Reaction Status Date / Time No Known Allergies Allergy Verified 11/28/17 13:39 Date of admission: 11/28/17 15:26 Primary care physician: Nguyen Odom MD Discharging clinician: Charles Bullard Anticipated date of discharge: 11/30/17 - Constitutional Vitals: Temp Pulse Resp BP Pulse Ox 98.4 F 94 16 139/86 93 11/30/17 07:32 11/30/17 07:32 11/30/17 07:32 11/30/17 07:32 11/30/17 07:32 General appearance: Present: cooperative, A&O X 3, pleasant, severe distress ( Abdominal pain), answers questions appropriately Exam: - Head Head exam: Present: atraumatic, normocephalic - Eye Eye exam: Presentconjuntiva pink, sclera anicteric - ENT ENT exam: Present: normal exam - Neck Neck exam general surgery: Present: normal inspection - Respiratory Respiratory exam: Present: CTAB. Absent: accessory muscle use, rales, rhonchi, wheezes - Cardiovascular Cardiovascular exam: Present: RRR, +S1, +S2. Absent: diastolic murmur, gallop, rubs, systolic murmur - GI/Abdominal GI/Abdominal exam: Present: normal bowel sounds, soft, tenderness, no peritoneal signs. Absent: distended, guarding - Extremities Exam Extremities exam: Present: warm, radial pulses palpable and symmetrical. Absent : calf tenderness, cyanotic, pedal edema - Back Exam Back exam: Present: normal inspection - Neurological Exam Neurological exam: Present: alert, CN II-XII intact, oriented X3, no focal deficits. Absent: pronater drift, facial droop, speech deficit - Psychiatric Psychiatric exam: Present: anxious - Skin Skin exam: Present: dry, intact - Patient Status Disposition: Home, Self-Care Condition: Fair Overall status at discharge: patient is back to baseline - Discharge Instructions Instructions: Pancreatitis (DC) Follow Up With: Nguyen Odom MD [Primary Care Provider] - - Diet and Activity Activity: increase activity as tolerated Diet: advance to your usual diet <Mario [place] Carol - Last Filed: 11/30/17 15:28> Date of Encounter: 11/30/17 - Discharge Diagnosis (1) Abdominal pain Status: Inactive Qualifiers: Abdominal location: epigastric Qualified Code(s): R10.13 - Epigastric pain (2) Pancreatitis Status: Acute Qualifiers: Chronicity: acute Pancreatitis type: alcohol induced Acute pancreatitis complication: unspecified Qualified Code(s): K85.20 - Alcohol induced acute pancreatitis without necrosis or infection (3) Alcohol use Status: Acute (4) Nausea & vomiting Status: Acute Qualifiers: Vomiting type: cyclical vomiting Vomiting Intractability: intractable Qualified Code(s): G43.A1 - Cyclical vomiting, intractable (5) HLD (hyperlipidemia) Status: Chronic Qualifiers: Hyperlipidemia type: pure hypercholesterolemia Qualified Code(s): E78.00 - Pure hypercholesterolemia, unspecified; E78.0 - Pure hypercholesterolemia (6) Muscle spasm of both lower legs Status: Chronic (7) Chronic back pain Status: Chronic Qualifiers: Back pain location: low back pain Back pain laterality: midline Sciatica presence: unspecified whether sciatica present Qualified Code(s): M54.5 - Low back pain; G89.29 - Other chronic pain (8) GERD (gastroesophageal reflux disease) Status: Chronic Qualifiers: Esophagitis presence: esophagitis presence not specified Qualified Code(s) : K21.9 - Gastro-esophageal reflux disease without esophagitis (9) DVT prophylaxis Status: Acute (10) Cholelithiasis Status: Acute Qualifiers: Cholelithiasis location: gallbladder Cholecystitis presence: without cholecystitis Biliary obstruction: without biliary obstruction Qualified Code(s): K80.20 - Calculus of gallbladder without cholecystitis without obstruction (11) Anxiety and depression Status: Chronic Hospital course: Mr. Ware is a 62 year old male - Time Spent with Patient Total time spent providing and/or coordinating discharge services: Date of admission: 11/28/17 15:26 Primary care physician: Nguyen Odom MD - Constitutional Vitals: Temp Pulse Resp BP Pulse Ox 98.4 F 94 16 139/86 93 11/30/17 07:32 11/30/17 07:32 11/30/17 07:32 11/30/17 07:32 11/30/17 07:32 - Attending Attestation 62 year old male with abdominal pain of 1 day duration Gen - Awake, alert, oriented x 3, no acute distress HEENT - NCAT, PERRLA, EOMI, hearing grossly intact, oropharynx benign CV - RRR, normal S1 and S2, no M/R/G, no BLE edema Resp - Normal WOB, CTAB, no W/R/R GI - Soft, NT/ND, no masses, normal bowel sounds, Skin - Warm, dry, no rashes/lesions/ulcers Psych - Normal mood and affect, no depression or anxiety Plan Acute pancreatitis. Advanced diet overnight. Tolerating diet and stable for discharge today. Agree with discharge summary as above
[2017-11-30] MEDS ORDERED: *HR* OxyCODONE/APAP 5/325 TABLET PO PRN (10:10)
--- NOTE | 2017-11-30 10:43 | Electrocardiograph Report ---
[address] [place] [address] Test Date: 2017-11-28 Pat Name: Luis Carlos Ware Department: [id number] Room: 3A43 Gender: M [employer]: : 1955 Requested By: Jeremy Villegas Order Number: [id number] Reading MD: Shasha Steward Measurements Intervals [place] Rate: 71 P: 54 AL: 179 QRS: 5 QRSD: 92 T: 38 QT: 422 QTc: 459 Interpretive Statements Sinus rhythm Electronically Signed On 11-30-2017 10:41:36 EDT by Shasha Steward
== END 2017-11-30 11:15 | disposition home or self-care (01) | DRG 439 ==
LOC: EMEROOARM 10:51 → 3ANU 15:26
PROVIDERS: ADMIT Internal Medicine; ATTEND Internal Medicine